=== PATIENT | female | born 1990 | race African-American/Black ===

== ENCOUNTER 2016-10-02 21:28 | Emergency (ER) | payer BC ==
[~2016-10-02] VITALS: Ht 165.1 cm; Wt 80.2 kg
[2016-10-02 23:05] VITALS: BP 120/81
== END 2016-10-02 23:07 | disposition home or self-care (01) | DRG 563 ==
LOC: ED 21:28
DX: S63.501A Unspecified sprain of right wrist, initial encounter (principal); X50.1XXA Overexertion from prolonged static or awkward postures, initial encounter; Y92.009 Unspecified place in unspecified non-institutional (private) residence as the place of occurrence of the external cause

== ENCOUNTER 2017-05-23 10:39 | Emergency (ER) | payer BC ==
[~2017-05-23] VITALS: Ht 165.1 cm; Wt 79.0 kg
[2017-05-23 11:55] LABS: INFLUENZA A NONE DETECTED (NONE DETECT); INFLUENZA B NONE DETECTED (NONE DETECT)
[2017-05-23 12:15] VITALS: BP 130/78
[2017-05-23] MEDS ORDERED: ROBITUSSIN AC10 ML PO (12:16)
[2017-05-23] MEDS ORDERED: AMOXICILLIN500 MG PO (12:16)
== END 2017-05-23 12:15 | disposition home or self-care (01) | DRG 153 ==
LOC: ED 10:39
PROVIDERS: Emergency Medicine
DX: J02.9 Acute pharyngitis, unspecified (principal); R05 Cough

== ENCOUNTER 2018-05-11 22:27 | Emergency (ER) | payer SELFPAY ==
[~2018-05-11] VITALS: Ht 165.1 cm; Wt 88.6 kg
[~2018-05-11 22:27] MED LIST: AMOXICILLIN500 MG PO; ROBITUSSIN AC10 ML PO
[2018-05-11 23:27] LABS: HEMATOCRIT 41.1 % (37.0-47.0); HEMOGLOBIN 14.3 g/dl (12.0-16.0); IMMATURE GRANULOCYTES 0.3 % (0.0-5.0); MEAN CELL VOLUME 85.1 fL CALC (80.0-100.0); MEAN CORPUSCULAR HGB 29.6 pG CALC (26.0-32.0); MEAN CORPUSCULAR HGB CONC 34.8 g/L CALC (32.0-36.0); NEUT# 4.05 thou/uL (2.00-7.15); RED BLOOD COUNT 4.83 mill/uL (4.20-5.60); RED CELL DISTRI WIDTH 12.8 % (11.5-15.5)
[2018-05-11 23:28] LABS: URINE BILIRUBIN - DIPSTICK NEGATIVE (NEGATIVE); URINE BLOOD DIPSTICK TRACE-INTACT (NEGATIVE); URINE COLOR YELLOW; URINE GLUCOSE - DIPSTICK NEGATIVE (NEGATIVE); URINE KETONE TRACE mg/dL (NEGATIVE); URINE LEUK ESTERASE NEGATIVE (NEGATIVE); URINE NITRITE - DIPSTICK NEGATIVE (Negative); URINE PROTEIN - DIPSTICK NEGATIVE (NEG-TRACE); URINE SPECIFIC GRAVITY 1.025; URINE UROBILINOGEN - DIPSTICK 0.2 E.U./dL (0.2)
[2018-05-12] MEDS ORDERED: TESSALON PER100 MG PO (00:07)
[2018-05-12] MEDS ORDERED: DOXYCYCL HYC100 MG PO (00:07)
[2018-05-12 00:35] VITALS: BP 138/82
== END 2018-05-12 00:35 | disposition home or self-care (01) ==
LOC: ED 22:27
PROVIDERS: Family Medicine
DX: J20.9 Acute bronchitis, unspecified (principal); R05 Cough; R50.9 Fever, unspecified

== ENCOUNTER 2018-06-05 17:22 | Emergency (ER) | payer MEDICAID ==
[~2018-06-05] VITALS: Ht 165.1 cm; Wt 88.0 kg
[~2018-06-05 17:22] MED LIST changes: +DOXYCYCL HYC100 MG PO; +TESSALON PER100 MG PO
[2018-06-05 18:02] LABS: GFR > 60 ML/MIN (>=60 (CALC)); GFR FOR AFR.AMER. > 60 ML/MIN (>=60 (CALC))
[2018-06-05 18:03] LABS: HEMATOCRIT 43.3 % (37.0-47.0); HEMOGLOBIN 14.6 g/dl (12.0-16.0); IMMATURE GRANULOCYTES 0.3 % (0.0-5.0); MEAN CELL VOLUME 86.9 fL CALC (80.0-100.0); MEAN CORPUSCULAR HGB 29.3 pG CALC (26.0-32.0); MEAN CORPUSCULAR HGB CONC 33.7 g/L CALC (32.0-36.0); NEUT# 3.48 thou/uL (2.00-7.15); RED BLOOD COUNT 4.98 mill/uL (4.20-5.60)
[2018-06-05 18:12] LABS: ANION GAP 15 (6-22 (CALC)); BUN 10 mg/dL (7-17); BUN/CREATININE RATIO 10 (12-20 (CALC)); CARBON DIOXIDE 23 mmol/l (22-30); CHLORIDE 104 mmol/l (95-108); CREATININE 0.9 mg/dL (0.5-1.0); GFR > 60 ML/MIN (>=60 (CALC)); GFR FOR AFR.AMER. > 60 ML/MIN (>=60 (CALC)); POTASSIUM 3.7 mmol/l (3.5-5.1); SODIUM 139 mmol/l (137-146)
[2018-06-05 19:07] VITALS: BP 125/79
== END 2018-06-05 19:42 | disposition short-term general hospital (02) ==
LOC: ED 17:22
PROVIDERS: Family Medicine
DX: I63.9 Cerebral infarction, unspecified (principal); R07.9 Chest pain, unspecified; R20.0 Anesthesia of skin; R27.0 Ataxia, unspecified

== ENCOUNTER → 2020-11-28 | Outpatient (REF) | END | disposition home or self-care (01) | DRG 392 | LOC: LAB 09:10 | PROVIDERS: ATTEND Physician Assistant | DX: R10.13 Epigastric pain (principal); R23.2 Flushing; E78.5 Hyperlipidemia, unspecified; R53.83 Other fatigue ==

== ENCOUNTER 2021-01-19 16:09 | Emergency (ER) | payer OTHER ==
[~2021-01-19] VITALS: Ht 165.1 cm; Wt 93.0 kg
[2021-01-19] MEDS ORDERED: ALLEGRA ALLERGY60 MG PO (18:07)
[2021-01-19] MEDS ORDERED: TESSALON PERLE100 MG PO (18:07)
[2021-01-19] MEDS ORDERED: PREDNISONE50 MG PO (18:07)
[2021-01-19] MEDS ORDERED: VENTOLIN HFA IN (18:07)
[2021-01-19] MEDS ORDERED: PROBIOTIC ACIDO1 CA1 PO (18:07)
[2021-01-19] MEDS ORDERED: AMOX/K CLAV875 M1 PO (18:07)
[2021-01-19 18:15] VITALS: BP 148/86
== END 2021-01-19 18:15 | disposition home or self-care (01) | DRG 153 ==
LOC: ED 16:09
DX: J32.9 Chronic sinusitis, unspecified (principal); Z20.822 Contact with and (suspected) exposure to COVID-19

== ENCOUNTER 2021-07-23 07:41 | Emergency (ER) | payer BC ==
[2021-07-23] VITALS (9 sets, daily range): BP systolic 116–156; BP diastolic 74–113
[~2021-07-23] VITALS: Ht 165.1 cm; Wt 92.0 kg
[~2021-07-23 07:41] MED LIST changes: +ALLEGRA ALLERGY60 MG PO; +AMOX/K CLAV875 M1 PO; +PREDNISONE50 MG PO; +PROBIOTIC ACIDO1 CA1 PO; +TESSALON PERLE100 MG PO; +VENTOLIN HFA IN
[2021-07-23 08:20] LABS: HEMATOCRIT 41.7 % (37.0-47.0); HEMOGLOBIN 13.7 g/dl (12.0-16.0); IMMATURE GRANULOCYTES 0.2 % (0.0-5.0); MEAN CELL VOLUME 84.1 fL CALC (80.0-100.0); MEAN CORPUSCULAR HGB 27.6 pG CALC (26.0-32.0); MEAN CORPUSCULAR HGB CONC 32.9 g/dL CAL (32.0-36.0); NEUT# 5.88 thou/uL (2.00-7.15); RED BLOOD COUNT 4.96 mill/uL (4.20-5.60); RED CELL DISTRI WIDTH 12.8 % (11.5-15.5)
[2021-07-23 08:39] LABS: ALBUMIN 4.3 g/dL (3.2-5.0); ALKALINE PHOSPHATASE 109 u/l (38-126); BILIRUBIN, TOTAL 0.6 mg/dL (0.0-1.4); BUN 12 mg/dL (7-17); BUN/CREATININE RATIO 13 (12-20 (CALC)); CHLORIDE 104 mmol/l (95-108); CREATININE 0.9 mg/dL (0.5-1.0); GFR > 60 ML/MIN (>=60 (CALC)); GFR FOR AFR.AMER. > 60 ML/MIN (>=60 (CALC)); POTASSIUM 3.5 mmol/l (3.5-5.1); SGOT/AST 23 u/l (14-36); SODIUM 137 mmol/l (137-146); TOTAL PROTEIN 7.8 g/dL (6.3-8.2)
[2021-07-23 08:42] LABS: ANION GAP 8 (6-22 (CALC)); CARBON DIOXIDE 29 mmol/l (22-30)
[2021-07-23] MEDS ORDERED: EC-NAPROXEN500 MG PO (09:28)
== END 2021-07-23 10:07 | disposition home or self-care (01) | DRG 948 ==
LOC: ED 07:41
PROVIDERS: Internal Medicine
DX: R60.9 Edema, unspecified (principal); I10 Essential (primary) hypertension